=== PATIENT | female | born 1970 | race African-American/Black ===

== ENCOUNTER → 2016-11-24 | Outpatient (CLI) | payer OTHER | LOC: FIMAGING 15:25 | DX: Z12.31 Encounter for screening mammogram for malignant neoplasm of breast (principal) | CPT/HCPCS: G0202 ==

== ENCOUNTER 2017-08-11 06:29 | Emergency (ER) | payer OTHER ==
[2017-08-11 06:44] VITALS: RESP 16; O2SAT 95
--- NOTE | 2017-08-11 07:07 | EDPHY ---
H & P Time Seen by Provider: 08/11/17 07:07 HPI/ROS: Chief complaint. Right-sided chest pain HPI. Patient is a 47-year-old female has had upper respiratory symptoms for 1 week. Her is also sick with upper respiratory infection. Yesterday she developed right-sided dull chest pain which has intensified. Increased pain going to the right back as well as her neck. Seems to be worse with lying down. She is unaware that it increases with exertion or deep breathing or twisting. She has had some exercise type workouts this week and thinks it is possible that this could be muscular. Her symptoms are better with ibuprofen. She has had some chills but no fever especially at the beginning. No travel. She does commute by bus daily to [place] for work. Exposure to sick contacts at work as well as her . She has no unusual leg pain or swelling. No abdominal pain, nausea vomiting diarrhea. No similar symptoms previously ROS Constitutional. no fever/chills, no weakness Eyes. no problems with vision ENT. Congestion Cardiovascular. Right-sided chest pain Respiratory. Cough Abdominal. no abdominal pain, no nausea/vomiting, no diarrhea . no problems urinating MS. no calf pain/swelling, no neck/back pain, no joint pain Skin. no rash Lymph. no swollen glands Neuro. no headache, no dizziness, no difficulty walking or with speech Past Medical/Surgical History: Left breast lumpectomy, uterine fibroids Social History: , nonsmoker, no alcohol Smoking Status: Never smoked Physical Exam: General Appearance: Alert pleasant well-developed female mild distress vital signs significant for heart rate 103 Eyes: Pupils equal and round no pallor or injection. ENT, Mouth: Mucous membranes are moist. Respiratory: There are no retractions, lungs are clear to auscultation. Cardiovascular: Regular rate and rhythm. Gastrointestinal: Abdomen is soft and nontender, no masses, bowel sounds normal. Neurological: Awake and alert, sensory and motor exams grossly normal. Skin: Warm and dry, no rashes. Musculoskeletal: Neck is supple nontender. Extremities symmetrical, full range of motion. Psychiatric: Patient is oriented X 3, there is no agitation. Constitutional: Initial Vital Signs Temperature (C) 36.4 C 08/11/17 06:41 Heart Rate 103 H 08/11/17 06:41 Respiratory Rate 16 08/11/17 06:41 Blood Pressure 142/98 H 08/11/17 06:41 O2 Sat (%) 95 08/11/17 06:41 O2 Delivery Mode Room Air Allergies/Adverse Reactions: codeine [Codeine] Allergy (Mild, Verified 08/11/17 06:43) Home Medications: Medication Instructions Recorded Miscellaneous Medical Supply [NO 1 ea MISC AD 07/08/12 HOME MEDS] Medical Decision Making - Diagnostics EKG Interpretation: EKG interpreted by me shows normal sinus rhythm normal interval and axis. QRS is normal there is no significant ST elevation or depression. No arrhythmia. The rate is 72 Imaging Results: Imaging Impressions Chest X-Ray 08/11/17 06:44 Impression: Possible hilar adenopathy. Results discussed with Dr. Willis at 7:30 AM. Two view chest x-ray interpreted by me is normal Further review and discussion with Dr. Livingston shows possible hilar adenopathy Procedures: IV normal saline ED Course/Re-evaluation: Re-evaluation at 8:30 a.m.. Patient is stable. Her discomfort is improving after her ibuprofen. The patient her and I discussed imaging lab an EKG results. We discussed treatment plan including recommendation for follow-up chest x-ray for possible hilar adenopathy. There are encouraged to return should she have worsening symptoms. They expressed understanding and agreement Differential Diagnosis: Patient appears to have a viral syndrome. This may also represent muscular etiology. I have considered acute coronary syndrome, pneumonia, pulmonary embolus. - Data Points Laboratory Results: Laboratory Results 08/11/17 07:30 08/11/17 07:30 08/11/17 08/11/17 08/11/17 07:30 07:30 07:30 WBC 6.50 10^3/uL 10^3/uL (3.80-9.50) RBC 4.86 10^6/uL 10^6/uL (4.18-5.33) Hgb 14.7 g/dL g/dL (12.6-16.3) Hct 42.6 % % (38.0-47.0) MCV 87.7 fL fL (81.5-99.8) MCH 30.2 pg pg (27.9-34.1) MCHC 34.5 g/dL g/dL (32.4-36.7) RDW 12.8 % % (11.5-15.2) Plt Count 254 10^3/uL 10^3/uL (150-400) MPV 10.1 fL fL (8.7-11.7) Neut % (Auto) 62.8 % % (39.3-74.2) Lymph % (Auto) 23.4 % % (15.0-45.0) [place] % (Auto) 11.5 % % (4.5-13.0) Eos % (Auto) 1.2 % % (0.6-7.6) Baso % (Auto) 0.8 % % (0.3-1.7) Nucleat RBC Rel Count 0.0 % % (0.0-0.2) Absolute Neuts (auto) 4.08 10^3/uL 10^3/uL (1.70-6.50) Absolute Lymphs (auto) 1.52 10^3/uL 10^3/uL (1.00-3.00) Absolute Monos (auto) 0.75 10^3/uL 10^3/uL (0.30-0.80) Absolute Eos (auto) 0.08 10^3/uL 10^3/uL (0.03-0.40) Absolute Basos (auto) 0.05 10^3/uL 10^3/uL (0.02-0.10) Absolute Nucleated RBC 0.00 10^3/uL 10^3/uL (0-0.01) Immature Gran % 0.3 % % (0.0-1.1) Immature Gran # 0.02 10^3/uL 10^3/uL (0.00-0.10) D-Dimer < 0.27 ug/mLFEU ug/mLFEU (0.00-0.50) Sodium 140 mEq/L mEq/L (134-144) Potassium 4.4 mEq/L mEq/L (3.5-5.2) Chloride 104 mEq/L mEq/L (97-110) Carbon Dioxide 22 mEq/l mEq/l (22-31) Anion Gap 14 mEq/L mEq/L (8-16) BUN 11 mg/dL mg/dL (7-23) Creatinine 0.7 mg/dL mg/dL (0.6-1.0) Estimated GFR > 60 Glucose 92 mg/dL mg/dL (70-100) Calcium 9.4 mg/dL mg/dL (8.5-10.4) Troponin I < 0.012 ng/mL ng/mL (0.000-0.034) Departure - Departure Disposition: Home, Routine, Self-Care Clinical Impression: Chest wall pain Condition: Good Instructions: Chest Wall Pain (ED) Additional Instructions: Ibuprofen 600 mg every 6 hr for discomfort. You may try heat which may also be helpful. Activity as tolerated. Return for worsening symptoms. Recheck in 2 days if not improving. The radiologist recommends follow-up chest x-ray because of possible hilar adenopathy in the next several weeks after you have resolved your upper respiratory infection. Referrals: Walter Ambrose DO [Doctor of Osteopathy] - As per Instructions
--- NOTE | 2017-08-11 07:43 | CPEKG ---
Heart Rate: 72 RR Interval: 833 P-R Interval: 196 QRSD Interval: 86 QT Interval: 408 QTC Interval: 447 P [place]: 52 QRS [place]: 54 T Wave [place]: 50 EKG Severity - NORMAL ECG - EKG Impression: SINUS RHYTHM Electronically Signed By: Rubén Willis 11-Aug-2017 08:36:25
[2017-08-11 07:51] LABS: PLATELET COUNT 254 10^3/uL (150-400)
[2017-08-11 08:50] VITALS: BP 132/88; PULSE 78; TEMP 98.1
== END 2017-08-11 08:46 | disposition home or self-care (01) ==
LOC: CED 06:29
DX: R07.89 Other chest pain (principal)
CPT/HCPCS: 71020-PO; 80048-PO; 84484-PO; 85025-PO; 85378-PO

== ENCOUNTER → 2018-11-22 | Outpatient (CLI) | payer OTHER | LOC: FIMAGING 08:53 | PROVIDERS: ATTEND Advanced Practice Midwife | DX: Z12.31 Encounter for screening mammogram for malignant neoplasm of breast (principal); Z80.3 Family history of malignant neoplasm of breast ==